=== PATIENT | female | born 1970 | race Caucasian/White ===

== ENCOUNTER 2017-10-15 05:40 | Day surgery (SDC) | payer OTHER ==
[~2017-10-15 05:40] MED LIST: SYNTHROID137 MCG PO
== END 2017-10-15 14:55 | disposition home or self-care (01) ==
LOC: CIR.AMB 05:40
DX: N84.0 Polyp of corpus uteri (principal)

== ENCOUNTER 2023-10-11 14:13 | Emergency (ER) | payer OTHER ==
[~2023-10-11] VITALS: Ht 160 cm; Wt 74.8 kg
[2023-10-11] MEDS ORDERED: ORPHENADRINE CITRATE 30 MG/ML AMPUL IM ONE (15:15)
[2023-10-11] MEDS ORDERED: KETOROLAC TROMETHAMINE 60 MG VIAL IM ONE (15:15)
[2023-10-11] MEDS ORDERED: NORFLEX100MG PO (17:24)
[2023-10-11] MEDS ORDERED: DICLOFENAC SODI75 MG PO (17:24)
== END 2023-10-11 17:56 ==
LOC: ER 14:14
DX: M25.552 Pain in left hip (principal); E03.9 Hypothyroidism, unspecified; M79.652 Pain in left thigh